=== PATIENT | female | born 1995 | race Two or more races ===

== ENCOUNTER 2018-03-26 12:43 | Emergency (ER) | payer MEDICAID, OTHER ==
[~2018-03-26] VITALS: Ht 160 cm; Wt 83.0 kg
[~2018-03-26 12:43] MED LIST: ALBU8.5H4 IH; AZIT-63 PO; BCP; CEPH-357 PO; HYDR-3965 PO; HYDR-4383 PO; IBUP-1984 PO; LORA10TA65 PO; NAPR-1154 PO; NAPR-435 PO; NITR100C6 PO; ONDA4TAB6 PO; ONDA8TAB6 PO; ONDA8TAB9 PO; ZOF4T PO
[2018-03-26 12:54] VITALS: BP 117/69
[2018-03-26] MEDS ORDERED: acetaminophen 325mg tablet PO ONE ×2 (13:25→13:30)
== END 2018-03-26 14:41 | disposition home or self-care (01) ==
LOC: ER 12:43
DX: S63.501D Unspecified sprain of right wrist, subsequent encounter (principal); G43.909 Migraine, unspecified, not intractable, without status migrainosus; G89.29 Other chronic pain; Z86.14 Personal history of Methicillin resistant Staphylococcus aureus infection; Z90.49 Acquired absence of other specified parts of digestive tract; F12.90 Cannabis use, unspecified, uncomplicated; Z91.018 Allergy to other foods; Z88.2 Allergy status to sulfonamides; Z91.040 Latex allergy status; Z79.2 Long term (current) use of antibiotics; Z79.899 Other long term (current) drug therapy; X58.XXXD Exposure to other specified factors, subsequent encounter
CPT/HCPCS: 29125; 99283

== ENCOUNTER 2018-04-05 15:23 | Emergency (ER) | payer MEDICAID, OTHER ==
[~2018-04-05] VITALS: Ht 160 cm; Wt 87.0 kg
[2018-04-05] MEDS ORDERED: METH500T6 PO (15:51)
[2018-04-05] MEDS ORDERED: HYDR-3686 PO (15:51)
[2018-04-05] MEDS ORDERED: CHOL100046 PO (15:51)
[2018-04-05] MEDS ORDERED: DULO-31 PO ×2 (15:51→19:32)
[2018-04-05 15:58] LABS: URINE HCG NEGATIVE (NEG)
[2018-04-05 15:59] LABS: BASOPHILS % (AUTO) 0.2 % (0-1); EOSINOPHILS # (AUTO) 0.2 X10'3 (0-0.9); EOSINOPHILS % (AUTO) 1.6 % (0-6); HEMATOCRIT 38.4 % (35.0-45.0); HEMOGLOBIN 12.6 g/dl (12.0-16.0); LYMPHOCYTES % (AUTO) 23.1 % (21-51); MEAN CORPUSCULAR HEMOGLOBIN 26.9 PG (27.0-31.0); MEAN CORPUSCULAR HGB CONC 32.9 % (33.0-36.5); MEAN CORPUSCULAR VOLUME 81.9 FL (78-98); MEAN PLATELET VOLUME 6.7 FL (7.4-10.4); MONOCYTES # (AUTO) 0.5 X10'3 (0-0.9); MONOCYTES % (AUTO) 4.1 % (2-12); NEUTROPHILS # (AUTO) 9.2 X10'3 (1.8-7.7); PLATELET COUNT 430 X10'3 (140-440); RED BLOOD COUNT 4.68 X10'6 (4.20-5.60); RED CELL DISTRIBUTION WIDTH 13.6 % (11.5-14.5)
[2018-04-05 16:09] LABS: ALANINE AMINOTRANSFERASE 31 U/L (12-78); ALBUMIN 3.6 G/DL (3.4-5.0); ALBUMIN/GLOBULIN RATIO 0.9 (1.1-1.5); ALKALINE PHOSPHATASE 82 IU/L (46-116); ANION GAP 8 (8-16); ASPARTATE AMINO TRANSFERASE 22 U/L (10-37); BILIRUBIN,TOTAL 0.3 MG/DL (0.1-1.0); BLOOD UREA NITROGEN 8 MG/DL (7-18); BUN/CREATININE RATIO 11.3 (6.6-38.0); CALCIUM 8.9 MG/DL (8.5-10.1); CHLORIDE 103 MMOL/L (99-107); CREATININE 0.71 MG/DL (0.40-0.90); ETHANOL < 0.010 GM/DL (0.0-0.010); GLUCOSE 99 MG/DL (70-104); POTASSIUM 3.5 MMOL/L (3.5-5.1); SODIUM 140 MMOL/L (135-145); TOTAL CARBON DIOXIDE 29.5 MMOL/L (24-32); TOTAL PROTEIN 7.7 G/DL (6.4-8.2); eGFR > 90 ML/MIN
[2018-04-05 16:12] LABS: URINE AMPHETAMINE SCREEN NEGATIVE (Neg); URINE BARBITUATE SCREEN NEGATIVE (Neg); URINE BENZODIAZEPINES SCREEN NEGATIVE (Neg); URINE CANNABINOID SCREEN POSITIVE (Neg); URINE COCAINE SCREEN NEGATIVE (Neg); URINE METHADONE SCREEN NEGATIVE (Neg); URINE OPIATE SCREEN POSITIVE (Neg); URINE PHENCYCLIDINE SCREEN NEGATIVE (Neg)
[2018-04-05 17:41] LABS: ACETAMINOPHEN < 2.0 UG/ML (10-30)
[2018-04-05] MEDS ORDERED: DULO60CA45 PO (19:32)
[2018-04-05] MEDS ORDERED: hydrOXYzine 25 MG tablet PO PRN (19:45)
[2018-04-05] MEDS ORDERED: cyclobenzaprine 10mg tablet PO PRN (19:54)
[2018-04-05] MEDS ORDERED: LORazepam 2 mg/ml vial IM ONE (20:10)
[2018-04-05] MEDS ORDERED: haloperidol lactate 5mg/ml inj IM ONE (20:40)
[2018-04-05] MEDS ORDERED: diphenhydrAMINE 50 mg/ml inj IM ONE (20:40)
[2018-04-05] MEDS ORDERED: duloxetine 30mg CAPSULE.DR PO SCH (21:00)
[2018-04-05] MEDS: ibuprofen tablet 400 MG TABLET PO SCH (21:00)
[2018-04-06 05:30] VITALS: BP 100/56
[2018-04-06 06:03] LABS: CLARITY,URINE SLIGHTLY CLOUDY (Clear); COLOR,URINE YELLOW (Yellow); GLUCOSE, URINE NEGATIVE (Neg); KETONES,URINE TRACE mg/dl (Neg); LEUKOCYTE ESTERASE ,URINE TRACE (Neg); NITRITES, URINE NEGATIVE (Neg); OCCULT BLOOD,URINE NEGATIVE (Neg); PROTEIN,URINE NEGATIVE (Neg)
[2018-04-06 06:12] LABS: UA COLLECTION TYPE OTHER
[2018-04-06 06:30] LABS: BACTERIA,URINE 1+ /HPF (Neg); MUCUS STRANDS MANY /LPF (Neg); RBC,URINE NONE SEEN /HPF (0-2); SQUAMOUS EPITHELIAL CELL,UR MANY /LPF (FEW)
[2018-04-06] MEDS ORDERED: vitamin D (cholecalciferol) 1,000 unit tablet PO SCH (08:00)
[2018-04-06] MEDS: ibuprofen tablet 400 MG TABLET PO SCH (08:26)
== END 2018-04-06 09:03 ==
LOC: ER 15:24
DX: R45.851 Suicidal ideations (principal); F32.9 Major depressive disorder, single episode, unspecified; G89.29 Other chronic pain; F12.90 Cannabis use, unspecified, uncomplicated; F41.9 Anxiety disorder, unspecified; Z86.14 Personal history of Methicillin resistant Staphylococcus aureus infection; Z90.49 Acquired absence of other specified parts of digestive tract; Z98.890 Other specified postprocedural states; Z91.018 Allergy to other foods; Z91.040 Latex allergy status; Z88.8 Allergy status to other drugs, medicaments and biological substances; Z79.899 Other long term (current) drug therapy
CPT/HCPCS: 36415; 80053; 80305; 80320; 80329; 81001; 81025; 84443; 85025; 96372; 99285; J1200; J1630; J2060

== ENCOUNTER 2018-10-07 08:41 | Emergency (ER) | payer BC, MEDICAID, OTHER ==
[~2018-10-07] VITALS: Ht 160 cm; Wt 85.0 kg
[~2018-10-07 08:41] MED LIST changes: -ALBU8.5H4 IH; -AZIT-63 PO; -BCP; -CEPH-357 PO; +CHOL100046 PO; +DULO-31 PO; +HYDR-3686 PO; -HYDR-3965 PO; -HYDR-4383 PO; -LORA10TA65 PO; +METH500T6 PO; -NAPR-1154 PO; -NAPR-435 PO; -NITR100C6 PO; -ONDA4TAB6 PO; -ONDA8TAB6 PO; -ONDA8TAB9 PO; -ZOF4T PO
[2018-10-07 09:13] LABS: BASOPHILS % (AUTO) 0.4 % (0-1); EOSINOPHILS # (AUTO) 0.2 X10'3 (0-0.9); EOSINOPHILS % (AUTO) 1.7 % (0-6); HEMATOCRIT 37.3 % (35.0-45.0); HEMOGLOBIN 12.5 g/dl (12.0-16.0); LYMPHOCYTES # (AUTO) 3.5 X10'3 (1.1-4.8); LYMPHOCYTES % (AUTO) 37.2 % (21-51); MEAN CORPUSCULAR HGB CONC 33.4 g/dL (33.0-36.5); MEAN CORPUSCULAR VOLUME 83.7 FL (78-98); MEAN PLATELET VOLUME 6.7 FL (7.4-10.4); MONOCYTES # (AUTO) 0.7 X10'3 (0-0.9); MONOCYTES % (AUTO) 7.1 % (2-12); NEUTROPHILS % (AUTO) 53.6 % (42-75); PLATELET COUNT 320 X10'3 (140-440); RED BLOOD COUNT 4.46 X10'6 (4.20-5.60); RED CELL DISTRIBUTION WIDTH 14.7 % (11.5-14.5); WHITE BLOOD COUNT 9.3 X10'3 (4.5-11.0)
[2018-10-07 09:23] LABS: CLARITY,URINE SLIGHTLY CLOUDY (Clear); COLOR,URINE YELLOW (Yellow); GLUCOSE, URINE NEGATIVE (Neg); KETONES,URINE NEGATIVE (Neg); LEUKOCYTE ESTERASE ,URINE NEGATIVE (Neg); NITRITES, URINE NEGATIVE (Neg); OCCULT BLOOD,URINE TRACE-INTACT (Neg); PROTEIN,URINE NEGATIVE (Neg); UA COLLECTION TYPE CLN CATCH MIDSTREAM; UROBILINOGEN,URINE 0.2 E.U/dL (0.2-1.0)
[2018-10-07] MEDS ORDERED: LIDOcaine Viscous 15ml cup MM PRN (09:25)
[2018-10-07] MEDS ORDERED: mag hydrox/Alum hydrox/simeth 30ml oral suspension PO ONE (09:25)
[2018-10-07 09:26] LABS: URINE HCG NEGATIVE (NEG)
[2018-10-07 09:29] LABS: SQUAMOUS EPITHELIAL CELL,UR MANY /LPF (FEW)
[2018-10-07 09:30] LABS: BACTERIA,URINE FEW /HPF (Neg); RBC,URINE 0-2 /HPF (0-2); WBC,URINE 0-4 /HPF (0-4)
[2018-10-07 09:31] LABS: ALANINE AMINOTRANSFERASE 21 U/L (12-78); ALBUMIN 3.7 G/DL (3.4-5.0); ALKALINE PHOSPHATASE 81 IU/L (46-116); ANION GAP 7 (8-16); ASPARTATE AMINO TRANSFERASE 16 U/L (10-37); BILIRUBIN,TOTAL 0.3 MG/DL (0.1-1.0); BLOOD UREA NITROGEN 15 MG/DL (7-18); BUN/CREATININE RATIO 16.9 (6.6-38.0); CHLORIDE 105 MMOL/L (99-107); CREATININE 0.89 MG/DL (0.40-0.90); GLUCOSE 97 MG/DL (70-104); POTASSIUM 3.7 MMOL/L (3.5-5.1); SODIUM 137 MMOL/L (135-145); TOTAL CARBON DIOXIDE 24.8 MMOL/L (24-32); TOTAL PROTEIN 7.5 G/DL (6.4-8.2); eGFR 79 ML/MIN
[2018-10-07] MEDS ORDERED: pantoprazole 40mg Tablet.DR PO SCH (09:39)
[2018-10-07 10:04] LABS: CHOLESTEROL 139 MG/DL (0-200); HDL CHOLESTEROL 47 MG/DL (35-60); LDL CHOLESTEROL 84 MG/DL (50-100); TRIGLYCERIDES 44 MG/DL (20-135)
[2018-10-07] MEDS ORDERED: ONDA4TAB6 PO (10:53)
[2018-10-07 11:01] VITALS: BP 115/80
== END 2018-10-07 11:06 | disposition home or self-care (01) ==
LOC: ER 08:42
DX: R10.84 Generalized abdominal pain (principal); G89.29 Other chronic pain; Z86.14 Personal history of Methicillin resistant Staphylococcus aureus infection; F12.90 Cannabis use, unspecified, uncomplicated; Z98.890 Other specified postprocedural states; Z91.040 Latex allergy status; Z91.018 Allergy to other foods; Z88.8 Allergy status to other drugs, medicaments and biological substances; Z79.899 Other long term (current) drug therapy
CPT/HCPCS: 36415; 80053; 80061; 81001; 81025; 85025; 85610; 99284

== ENCOUNTER 2018-12-22 04:00 | Emergency (ER) | payer BC, OTHER ==
[~2018-12-22] VITALS: Ht 160 cm; Wt 80.0 kg
[~2018-12-22 04:00] MED LIST changes: +ONDA4TAB6 PO
[2018-12-22 04:05] VITALS: BP 117/57
--- NOTE | 2018-12-22 04:14 | NUR ---
Entered the room with Dr. Iqbal and his scribe Yuliet to evaluate the patient. When asked if the patient uses any drugs and admits to using marijuana near the time of onset of her symptoms. Dr. Iqbal politely informed the patient that the body spasms she is experiencing can be caused by marijuana use. Immediately the patient's male visitor starting yelling at Dr. Iqbal that they are regular marijuana smokers and that marijuana does not cause her symptoms. He yells at Dr. Iqbal, "I studied marijuana. Did you? No, I didn't think so!" Dr. Iqbal attempted to de-escalate the patient but he continued yelling and screaming about marijuana. Security was called to escor the visitor out so that the patient could treated. The visitor continued his verbal hostility and the patient decided she was going to leave with him. The patient was observed ambulating out of the ED with a steady gait. The patient's visitor continued to have verbal conflict outside of the ED until they left with [facility] presence.
== END 2018-12-22 04:30 | disposition left against medical advice (07) ==
LOC: ER 04:01
DX: M79.10 Myalgia, unspecified site (principal); F12.90 Cannabis use, unspecified, uncomplicated; G43.909 Migraine, unspecified, not intractable, without status migrainosus; G89.29 Other chronic pain; F41.9 Anxiety disorder, unspecified; F32.9 Major depressive disorder, single episode, unspecified; Z86.14 Personal history of Methicillin resistant Staphylococcus aureus infection; Z90.49 Acquired absence of other specified parts of digestive tract; Z98.890 Other specified postprocedural states; Z91.018 Allergy to other foods; Z91.040 Latex allergy status; Z79.899 Other long term (current) drug therapy
CPT/HCPCS: 99281

== ENCOUNTER 2022-12-17 21:34 | Emergency (ER) | payer MEDICAID ==
[~2022-12-17] VITALS: Ht 157.5 cm; Wt 53.4 kg
[~2022-12-17 21:34] MED LIST changes: +METH-797 PO; -METH500T6 PO
[2022-12-17 21:54] VITALS: BP 112/39; PULSE 76; RESP 18; TEMP 98.8; O2SAT 99
[2022-12-17] MEDS ORDERED: AMOX-117 PO (23:29)
[2022-12-17] MEDS ORDERED: HYDR-3965 PO (23:29)
== END 2022-12-18 00:24 | disposition home or self-care (01) ==
LOC: ER 21:35
DX: K08.89 Other specified disorders of teeth and supporting structures (principal); R22.0 Localized swelling, mass and lump, head; F12.10 Cannabis abuse, uncomplicated; G43.909 Migraine, unspecified, not intractable, without status migrainosus; G89.29 Other chronic pain; M54.9 Dorsalgia, unspecified; F31.9 Bipolar disorder, unspecified; Z86.14 Personal history of Methicillin resistant Staphylococcus aureus infection; Z91.040 Latex allergy status; Z88.5 Allergy status to narcotic agent; Z88.8 Allergy status to other drugs, medicaments and biological substances
CPT/HCPCS: 99283

== ENCOUNTER 2024-05-18 09:44 | Emergency (ER) | payer MEDICAID ==
[~2024-05-18] VITALS: Ht 157.5 cm; Wt 72.8 kg
[2024-05-18 09:53] VITALS: BP 106/53; PULSE 78; RESP 18; TEMP 97.8; O2SAT 100
== END 2024-05-18 11:05 | disposition home or self-care (01) ==
LOC: ER 09:45
DX: T23.131A Burn of first degree of multiple right fingers (nail), not including thumb, initial encounter (principal); M79.7 Fibromyalgia; G89.29 Other chronic pain; M54.9 Dorsalgia, unspecified; G43.909 Migraine, unspecified, not intractable, without status migrainosus; F41.9 Anxiety disorder, unspecified; F32.A Depression, unspecified; F12.90 Cannabis use, unspecified, uncomplicated; Z88.8 Allergy status to other drugs, medicaments and biological substances; Z91.040 Latex allergy status; Z91.018 Allergy to other foods; Z79.1 Long term (current) use of non-steroidal anti-inflammatories (NSAID); Z79.899 Other long term (current) drug therapy; Z90.49 Acquired absence of other specified parts of digestive tract; X10.1XXA Contact with hot food, initial encounter; Y93.89 Activity, other specified; Y92.89 Other specified places as the place of occurrence of the external cause; Y99.8 Other external cause status
CPT/HCPCS: 99282